=== PATIENT | male | born 1995 | race Two or more races ===

== ENCOUNTER 2025-07-18 18:14 | Emergency (ER) | payer OTHER ==
[~2025-07-18] VITALS: Ht 182.9 cm; Wt 99.8 kg
[2025-07-18 18:16] VITALS: BP 141/96
[2025-07-18] MEDS ORDERED: TDAP DIPH,PERTUSS,TET VAC/PF 0.5 ML DISP.SYRIN IM ONE (18:40)
[2025-07-18] MEDS: TDAP DIPH,PERTUSS,TET VAC/PF 0.5 ML DISP.SYRIN IM ONE (18:45)
[2025-07-18] MEDS ORDERED: KETOROLAC TROMETHAMINE 30 MG INJ ONE (18:51)
[2025-07-18] MEDS ORDERED: HYDROCODONE/APAP 5-325MG TABLET ONE (18:51)
[2025-07-18] MEDS: HYDROCODONE/APAP 5-325MG TABLET PO ONE (18:55)
[2025-07-18] MEDS: KETOROLAC TROMETHAMINE 30 MG INJ IM ONE (18:55)
[2025-07-18] MEDS ORDERED: NEOMY/BACITRA/POLYMYXIN B OINT UD PACKET TP ONE (19:28)
[2025-07-18] MEDS: NEOMY/BACITRA/POLYMYXIN B OINT UD PACKET TP ONE (19:31)
[2025-07-18] MEDS ORDERED: HYDR-4209 PO (19:38)
[2025-07-18] MEDS ORDERED: NAPR-1009 PO (19:38)
[2025-07-18] MEDS ORDERED: CEPH500C2 PO (19:38)
[2025-07-18 20:11] VITALS: BP 131/88; TEMP 98; O2SAT 99
== END 2025-07-18 20:07 | disposition home or self-care (01) ==
LOC: ER 18:23
DX: S62.522A Displaced fracture of distal phalanx of left thumb, initial encounter for closed fracture (principal); X58.XXXA Exposure to other specified factors, initial encounter; Y93.89 Activity, other specified; Y92.89 Other specified places as the place of occurrence of the external cause; Y99.0 Civilian activity done for income or pay
CPT/HCPCS: 99284; 73140; 90715; 96372; 90471; J1885; A4606; A4663